=== PATIENT | male | born 1960 | race Caucasian/White ===

== ENCOUNTER → 2019-08-08 08:43 | Outpatient (BNVA) | payer MEDICARE, OTHER, SELFPAY | PROVIDERS: Family Provider Specialist; PCP Nurse Practitioner Family; Visit Provider Nurse Practitioner | DX: M54.9 Dorsalgia, unspecified (principal); F17.220 Nicotine dependence, chewing tobacco, uncomplicated; Z79.891 Long term (current) use of opiate analgesic | CPT/HCPCS: 99214 ==

== ENCOUNTER 2019-08-28 12:37 | Outpatient (CLI) | payer MEDICARE, OTHER, SELFPAY ==
--- NOTE | 2019-08-28 | XR_ITS ---
WS: [id number] RIGHT KNEE: 3 VIEW(S) TECHNIQUE: AP, oblique(s) and lateral. HISTORY: RT MEDIAL KNEE PAIN COMPARISON: None available. Status post extensive ORIF proximal tibia. No prior studies for comparison to evaluate for change. Th e hardware is intact. No lucency around the plate or screws. There are degenerative changes at the pr oximal tibiofibular joint space with osteophyte formation. Mild narrowing of the joint spaces of the knee. Concave cortical defect involving the proximal medial tibia appears well-corticated. No joint effusion. No soft tissue abnormality. XR/XR knee RT 3V* [id number] IMPRESSION: 1. No acute injury is identified radiographically. 2. Postoperative changes in the proximal tibia appear uncomplicated. No prior studies for comparison.
== END 2019-08-28 12:38 | disposition home or self-care (01) ==
LOC: RADOUTREAD 08-29 07:28
PROVIDERS: Family Provider Specialist; PCP Nurse Practitioner Family; Visit Provider Nurse Practitioner Family
DX: Z01.89 Encounter for other specified special examinations (principal)

== ENCOUNTER → 2019-09-21 10:19 | Outpatient (BNVA) | payer MEDICARE, OTHER, SELFPAY | PROVIDERS: Family Provider Specialist; PCP Nurse Practitioner Family; Referring Provider Nurse Practitioner Family; Visit Provider Orthopaedic Surgery | DX: M25.561 Pain in right knee (principal); S82.201A Unspecified fracture of shaft of right tibia, initial encounter for closed fracture; X58.XXXA Exposure to other specified factors, initial encounter | CPT/HCPCS: 73560; 73565 ==

== ENCOUNTER → 2019-12-07 08:04 | Outpatient (BNVA) | payer MEDICARE, OTHER, SELFPAY | PROVIDERS: Family Provider Specialist; PCP Nurse Practitioner Family; Visit Provider Anesthesiology | DX: M54.5 Low back pain (principal); F17.220 Nicotine dependence, chewing tobacco, uncomplicated; Z79.891 Long term (current) use of opiate analgesic | CPT/HCPCS: 99212; 99214 ==

== ENCOUNTER → 2020-01-04 08:04 | Outpatient (BNVA) | payer MEDICARE, OTHER, SELFPAY | PROVIDERS: Family Provider Specialist; PCP Nurse Practitioner Family; Visit Provider Anesthesiology | DX: G89.29 Other chronic pain (principal); M54.5 Low back pain; M17.11 Unilateral primary osteoarthritis, right knee; M25.512 Pain in left shoulder; F17.220 Nicotine dependence, chewing tobacco, uncomplicated; Z98.890 Other specified postprocedural states; Z79.891 Long term (current) use of opiate analgesic | CPT/HCPCS: 99214 ==

== ENCOUNTER 2020-03-29 09:12 | Emergency (ER) | payer MEDICARE, OTHER, SELFPAY ==
[2020-03-29 09:39] VITALS: BP 149/92; PULSE 65; RESP 18; TEMP 37.1; O2SAT 98; BMI 29.6
[2020-03-29 09:44] VITALS: BP 149/92; PULSE 63; RESP 16; O2SAT 98
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
[2020-03-29] MEDS: ketorolac 60 mg/2 mL INJ IM (09:57)
[2020-03-29] MEDS: orphenadrine 30 mg/mL Inj 2 mL 60 MG IM ×2 (09:57→09:59)
[2020-03-29] MEDS: dexamethasone 10 mg/mL INJ IM (09:57)
[2020-03-29 10:00] VITALS: BP 153/97; PULSE 83; RESP 18; O2SAT 98
[2020-03-29 10:01] VITALS: BP 153/97; PULSE 86; RESP 20; TEMP 36.6; O2SAT 98
== END 2020-03-29 10:15 | disposition home or self-care (01) ==
PROVIDERS: Emergency Provider Family Medicine; PCP Nurse Practitioner Family
DX: M54.16 Radiculopathy, lumbar region (principal); F17.220 Nicotine dependence, chewing tobacco, uncomplicated
CPT/HCPCS: 12345; 96372; 99282; 99283; J1100; J1885; J2360

== ENCOUNTER → 2020-04-24 08:25 | Outpatient (BNVA) | payer MEDICARE, OTHER, SELFPAY | PROVIDERS: Family Provider Specialist; PCP Nurse Practitioner Family; Visit Provider Anesthesiology | DX: M54.5 Low back pain (principal); F17.220 Nicotine dependence, chewing tobacco, uncomplicated; Z79.891 Long term (current) use of opiate analgesic | CPT/HCPCS: 99212; 99214 ==

== ENCOUNTER → 2020-07-16 08:13 | Outpatient (BNVA) | payer MEDICARE, OTHER, SELFPAY | PROVIDERS: Family Provider Specialist; PCP Nurse Practitioner Family; Visit Provider Anesthesiology | DX: M54.42 Lumbago with sciatica, left side (principal); F17.220 Nicotine dependence, chewing tobacco, uncomplicated; Z79.891 Long term (current) use of opiate analgesic; Z79.1 Long term (current) use of non-steroidal anti-inflammatories (NSAID) | CPT/HCPCS: 99213 ==

== ENCOUNTER → 2020-08-07 10:23 | Outpatient (BNVA) | payer MEDICARE, OTHER, SELFPAY | PROVIDERS: Family Provider Specialist; PCP Nurse Practitioner Family; Visit Provider Anesthesiology | DX: G89.29 Other chronic pain (principal); M54.5 Low back pain; M25.512 Pain in left shoulder; F17.220 Nicotine dependence, chewing tobacco, uncomplicated; Z79.891 Long term (current) use of opiate analgesic | CPT/HCPCS: 99213; 99214 ==

== ENCOUNTER → 2020-10-28 09:11 | Outpatient (BNVA) | payer MEDICARE, OTHER, SELFPAY | PROVIDERS: PCP Nurse Practitioner Family; Visit Provider Anesthesiology | DX: G89.29 Other chronic pain (principal); M54.42 Lumbago with sciatica, left side; F17.220 Nicotine dependence, chewing tobacco, uncomplicated; Z79.891 Long term (current) use of opiate analgesic | CPT/HCPCS: 99213 ==

== ENCOUNTER 2020-12-22 21:30 | Emergency (ER) | payer MEDICARE, OTHER, SELFPAY ==
[2020-12-22 21:42] VITALS: BP 147/85; PULSE 71; RESP 18; TEMP 36.9; O2SAT 97; BMI 30.4
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
[2020-12-22] MEDS: ondansetron 2 mg/ML SDV 2 mL 4 MG IVP (22:55)
[2020-12-22 23:00] VITALS: RESP 18
[2020-12-22] MEDS: morphine 4 mg/mL SDV 1 mL IVP (23:00)
[2020-12-22] MEDS: sodium chloride 0.9% 500 ML 999 ML IV (23:05)
[2020-12-22 23:10] LABS: Basophils % 0.3 %; Eosinophils % 0.2 %; Hematocrit 47.1 % (42.0-52.0); Hemoglobin 15.4 g/dL (11.7-16.6); Lymphocytes # 0.8 10^3/uL (0.8-4.8); Lymphocytes % 6.4 %; Mean Corpuscular HGB Conc 32.7 g/dL (30.0-36.0); Mean Corpuscular Hemoglobin 31.7 pg (28.0-34.0); Mean Corpuscular Volume 96.9 fL (80-94); Mean Platelet Volume 9.4 fL (7.4-10.4); Monocytes # 1.1 10^3/uL (0.2-0.9); Monocytes % 8.6 %; Neutrophils # 10.89 10^3/uL (1.8-7.7); Neutrophils % 84.1 %; Nucleated Red Blood Cells % 0 %; Platelet Count 234 10^3/cmm (130-400); Red Blood Count 4.86 10^6/uL (4.1-5.3); Red Cell Distribution Width 12.1 % (12.1-15.1); White Blood Count 12.9 10^3/uL (4.0-10.0)
[2020-12-22 23:23] LABS: Bilirubin Urine Neg (Negative); Blood Urine 3+ (Negative); Glucose Urine UA Norm (Normal); Ketones Urine Negative (Negative); Leukocyte Esterase Urine Negative (Negative); Nitrate Urine Negative (Negative); Protein Urine Neg (Negative); Specific Gravity, Urine 1.015 (1.005-1.030); Urine Appearance Clear (CLEAR); Urine Color Yellow (Yellow); Urobilinogen Urine Norm (Negative); pH Urine 5 (5-7)
[2020-12-22 23:24] LABS: Add Urine Culture? Yes; Bacteria Urine TRACE /hpf; RBC Urine 40-50 /hpf (0-2)
[2020-12-22] MEDS: tamsulosin 0.4 mg Capsule PO (23:25)
[2020-12-23 00:04] VITALS: BP 133/83; PULSE 55; RESP 18; O2SAT 98
[2020-12-23 00:14] LABS: Alanine Aminotransferase 17 U/L (0-41); Albumin Level 4.2 g/dL (3.5-5.2); Alkaline Phosphatase 80 IU/L (40-130); Anion Gap 14.6 (5-19); Aspartate Amino Transferase 14 U/L (0-40); Blood Urea Nitrogen 22 mg/dL (8-23); Calcium 9.1 mg/dL (8.5-10.5); Carbon Dioxide 23 mmol/L (22-29); Chloride 107 mmol/L (98-107); Glomerular Filtration Rate 98.3 mL/min (90-130); Glucose 106 mg/dL (65-115); Lipase 39 U/L (13-60); Osmolality Calculated 294 mOsm/kg (285-295); Potassium 4.6 mmol/L (3.5-5.1); Sodium 140 mmol/L (136-145); Total Bilirubin 0.5 mg/dL (0.15-1.2); Total Protein 6.2 g/dL (6.6-8.7)
--- NOTE | 2020-12-23 00:15 | PC.NURSE ---
report to Ena CARPENTER
[2020-12-23] MEDS: ketorolac 30 mg/mL INJ IVP (00:25)
[2020-12-23 00:31] VITALS: BP 129/87; PULSE 62; RESP 18; TEMP 36.9; O2SAT 98
--- NOTE | 2020-12-24 09:36 | DCPLANNER ---
food service manager had message to schedule a follow up appointment for patient with Dr. Yun for kidney stones. food service manager called the office of Dr. Yun, spoke with Alyse, gave clinic patients information. food service manager was told that patients information would be printed and reviewed. Clinic will call patient with appointment information.
--- NOTE | 2020-12-26 07:53 | DCPLANNER ---
Patient had a follow up appointment scheduled for 12.26.[address] Yun - patient did attend appointment.
== END 2020-12-23 00:33 | disposition home or self-care (01) ==
PROVIDERS: Emergency Provider Physician Assistant; PCP Nurse Practitioner Family
DX: N20.0 Calculus of kidney (principal); F17.220 Nicotine dependence, chewing tobacco, uncomplicated
CPT/HCPCS: 36415; 74176; 80053; 81001; 83690; 85025; 87086; 96374; 96375; 99284; J1885; J2270; J2405; J7040

== ENCOUNTER 2020-12-26 09:54 | Outpatient (CLI) | payer MEDICARE, OTHER, SELFPAY ==
--- NOTE | 2020-12-26 11:00 | XR_ITS ---
WS: [id number] KUB, AP view, 12/26/2020 Clinical Data: KIDNEY STONE Comparison: CT abdomen and pelvis, 12/22/2020. Findings: There is a calcification overlying the right kidney. A generator is overlying the inferior aspect of the right kidney obscuring detail. The kidneys are partly obscured by colon gas and fecal material bu t no calcifications are seen on the left. There is a mesenteric calcification on the right side of th e true pelvis. There is a clip in the right upper quadrant from a cholecystectomy. XR/XR KUB [id number] Impression: Right renal calculus.
== END 2020-12-26 09:55 | disposition home or self-care (01) ==
LOC: RAD 09:55
PROVIDERS: PCP Nurse Practitioner Family; Visit Provider Urology
DX: N20.0 Calculus of kidney (principal)
CPT/HCPCS: 74018; 81003; 84403; G0103

== ENCOUNTER → 2021-02-26 11:11 | Outpatient (BNVA) | payer MEDICARE, OTHER, SELFPAY | PROVIDERS: PCP Nurse Practitioner Family; Visit Provider Nurse Practitioner | DX: G89.29 Other chronic pain (principal); M54.42 Lumbago with sciatica, left side; M17.11 Unilateral primary osteoarthritis, right knee; M25.512 Pain in left shoulder; F17.220 Nicotine dependence, chewing tobacco, uncomplicated; Z98.890 Other specified postprocedural states; Z79.1 Long term (current) use of non-steroidal anti-inflammatories (NSAID); Z79.891 Long term (current) use of opiate analgesic; Z71.6 Tobacco abuse counseling | CPT/HCPCS: 99214 ==

== ENCOUNTER → 2021-05-20 08:11 | Outpatient (BNVA) | payer MEDICARE, OTHER, SELFPAY | PROVIDERS: PCP Nurse Practitioner Family; Visit Provider Anesthesiology | DX: G89.29 Other chronic pain (principal); M54.50 Low back pain, unspecified; M25.512 Pain in left shoulder; F17.200 Nicotine dependence, unspecified, uncomplicated; Z79.891 Long term (current) use of opiate analgesic; Z71.6 Tobacco abuse counseling | CPT/HCPCS: 99214 ==

== ENCOUNTER 2022-09-15 13:05 | Emergency (ER) | payer MEDICARE, OTHER, SELFPAY ==
[2022-09-15 13:07] VITALS: BP 155/75; PULSE 70; RESP 18; TEMP 36.6; O2SAT 99; BMI 28.8
--- NOTE | 2022-09-15 13:42 | XRR_ITS ---
PROCEDURE INFORMATION: Exam: XR Right Foot Exam date and time: 09/15/2022 12:46 PM Age: 61 years old Clinical indication: Pain and injury or trauma; Other: Stepped in a hole; Sprain or strain; Right; Injury details: Stepped in hole and heard a pop, old trauma to this foot also TECHNIQUE: Imaging protocol: Radiologic exam of the right foot. Views: 3 or more views. COMPARISON: CR XR knee RT 3V* [id number] 08/15/2020 12:50 PM FINDINGS: Bones/joints: Negative for acute bony abnormality. There is midfoot osteoarthritis Soft tissues: Unremarkable XR/XR foot RT min 3V* [id number] IMPRESSION: No acute bone abnormality.
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
--- NOTE | 2022-09-16 11:22 | DCPLANNER ---
Addendum entered by Kesha Ontiveros 09/22/22 14:58: Patient had a follow up appointment scheduled with podiatry - patient did attend appointment Addendum entered by Kesha Ontiveros 09/17/22 07:42: Patient has a follow up appointment scheduled for Saturday, September 17, 2022 at 11:[address] Bradley at podiatry. Original Note: grain merchandising manager had message to schedule a follow up appointment for patient with podiatry. grain merchandising manager sent patients information to the front office staff at podiatry. Patients information will be reviewed, clinic will call patient with appointment information.
== END 2022-09-15 15:18 | disposition home or self-care (01) ==
PROVIDERS: Emergency Provider Physician Assistant; PCP Nurse Practitioner Family
DX: M79.671 Pain in right foot (principal)
CPT/HCPCS: 73630; 99283; E0114

== ENCOUNTER → 2022-09-17 11:00 | Outpatient (BNVA) | payer MEDICARE, OTHER, SELFPAY | PROVIDERS: PCP Nurse Practitioner Family; Visit Provider Podiatrist Foot & Ankle Surgery | DX: M76.71 Peroneal tendinitis, right leg (principal) | CPT/HCPCS: 73630; 99203 ==

== ENCOUNTER → 2022-09-29 11:12 | Outpatient (BNVA) | payer MEDICARE, OTHER, SELFPAY | PROVIDERS: PCP Nurse Practitioner Family; Visit Provider Podiatrist Foot & Ankle Surgery | DX: M76.71 Peroneal tendinitis, right leg (principal); M19.071 Primary osteoarthritis, right ankle and foot | CPT/HCPCS: 99213 ==

== ENCOUNTER → 2023-01-05 11:24 | Outpatient (BNVA) | payer MEDICARE, OTHER, SELFPAY | PROVIDERS: PCP Nurse Practitioner Family; Visit Provider Internal Medicine Cardiovascular Disease | DX: R00.2 Palpitations (principal); Z72.0 Tobacco use; I10 Essential (primary) hypertension; M54.40 Lumbago with sciatica, unspecified side; G89.29 Other chronic pain | CPT/HCPCS: 93242; 99204 ==

== ENCOUNTER 2023-01-24 06:45 | Outpatient (CLI) | payer MEDICARE, OTHER, SELFPAY ==
--- NOTE | 2023-01-24 07:00 | USCV_ITS ---
Wade Abbott Age: 62 Gender: M : 1960 Exam Date: 01/24/2023 07:02 Ordering Phys: Meseret Hurtado MD ([email or web address]) Technologist: LORETTA Exam Location: [facility] [place] Indication: SHORTNESS OF BREATH BP: 148 / 86 HR: 56 Rhythm: Sinus Technical Quality: Adequate MEASUREMENTS (Male / Female) Normal Values 2D ECHO LVOT Diameter 2.0 cm LV Ejection Fraction MOD 2C 67.6 % LV Ejection Fraction 2C AL 68.3 % LA Diameter 3.1 cm LA Width 3.0 cm LA Height 5.1 cm RA Width 2.9 cm RA Height 5.2 cm Aorta at Sinotubular Diameter 2.9 cm IVC Diameter 1.4 cm M-MODE Aortic Annulus Diameter 2.7 cm LA Ao Ratio MM 1.1 MV E Point Septal Separation 0.4 cm DOPPLER AV Peak Velocity 135.0 cm/s LVOT Peak Velocity 130.0 cm/s AV Area Cont Eq vti 2.9 cm squared AV Area Cont Eq pk 3.0 cm squared MV Peak Velocity 88.0 cm/s MV Area PHT 4.6 cm squared Mitral E to A Ratio 1.1 MV E' Velocity 47.5 cm/s Mitral E to MV E' Ratio 7.2 Mitral E to LV E' Lateral Ratio 6.9 Mitral E to LV E' Septal Ratio 7.5 TR Peak Velocity 164.6 cm/s TR Peak Gradient 10.8 mmHg TR Mean Velocity 140.7 cm/s TR Mean Gradient 7.9 mmHg TR Velocity Time Integral 44.5 cm TV Peak E Velocity 59.0 cm/s Right Atrial Pressure 3.0 mmHg Pulmonary Artery Systolic Pressu 13.8 mmHg PV Peak Velocity 90.0 cm/s RV Acceleration Time 0.1 s RV Ejection Time 0.3 s RV AcT/ET 0.4 FINDINGS Left Ventricle Normal left ventricular size, systolic function and wall thickness, with no regional wall motion abnormalities. Left ventricular ejection fraction is estimated at 68 %. Normal diastolic function. Right Ventricle Normal right ventricular size and systolic function. RVSP could not be calculated due to incomplete tricuspid regurgitation velocity profile. Right Atrium Normal right atrial size. Left Atrium Normal left atrial size. Mitral Valve Structurally normal mitral valve. No mitral valve stenosis. Trace mitral valve regurgitation. Aortic Valve Structurally normal trileaflet aortic valve. No aortic valve stenosis. No aortic valve regurgitation. Tricuspid Valve Structurally normal tricuspid valve. No tricuspid valve stenosis. Trace to mild tricuspid valve regurgitation. Pulmonic Valve Structurally normal pulmonic valve. No pulmonary valve stenosis. No pulmonary valve regurgitation. Pericardium No pericardial effusion. Aorta Normal size aortic root and proximal ascending aorta. IVC Normal IVC dimension with >50% respiratory change of the inferior vena cava. CONCLUSIONS 1. Normal left ventricular size, systolic function and wall thickness, with no regional wall motion abnormalities. Left ventricular ejection fraction is estimated at 68 %. Normal diastolic function. 2. No prior similar studies to compare. Meseret Hurtado MD (Electronically Signed) Final Date: 28 January 2023 13:43 S
== END 2023-01-24 06:46 | disposition home or self-care (01) ==
LOC: RAD 06:48
PROVIDERS: PCP Nurse Practitioner Family; Visit Provider Internal Medicine Cardiovascular Disease
DX: R00.2 Palpitations (principal); R06.02 Shortness of breath
CPT/HCPCS: 93306; 99204

== ENCOUNTER 2023-07-20 07:43 | Outpatient (CLI) | payer MEDICARE, OTHER, SELFPAY ==
--- NOTE | 2023-07-20 07:47 | CT_ITS ---
WS: [id number] CT ABDOMEN AND PELVIS WITH AND WITHOUT CONTRAST HISTORY: HX OF KIDNEY STONES/ASYMPTOMATIC MICROSCOPIC HEMATURIA TECHNIQUE: Unenhanced 5 mm axial imaging first performed through the abdomen. Post contrast imaging t hrough the abdomen and pelvis. Oral contrast has not been provided. Sagittal and coronal reformats a re submitted. All CT scans at [facility] use at least one of these dose optimization techniqu es: automated exposure control; mA and/or kV adjustment per patient size (includes targeted exams whe re dose is matched to clinical indication); or iterative reconstruction. CONTRAST: Omnipaque 350; 95 mL IV. DLP: 1612.86 mGy.cm COMPARISON: 12/22/2020 Long-term stability lobulated 7 mm pulmonary nodule LEFT lung base. No pneumonia. Heart is normal siz e. Normal size liver. 7 mm cyst along the LEFT falciform ligament. Normal portal vein. No liver mass. Pr ior cholecystectomy. Normal postcholecystectomy bile duct. Normal pancreas. Normal spleen. RIGHT kidney: Normal size RIGHT kidney 11.3 cm in length. There are several nonobstructing calcificat ions in the central renal pelvis with the largest measuring 8 mm in the mid pelvis. 13 mm cyst in the central kidney. There are additional too small to characterize hypodensities. Within the proximal RI GHT ureter is a 5 mm ureteral calcification. No additional ureteral calcifications. This calcificatio n is not causing significant obstruction. LEFT kidney: 11.1 cm in length. No renal calcifications. Several small cysts with the largest measuri ng 1.7 cm. There are additional too small to characterize hypodensities. No ureteral obstruction or c alcification. Mild atherosclerosis aorta. No GI tract obstruction. There are a few scattered diverticula in the dis marva colon. No acute diverticulitis. No adenopathy or ascites. Urinary bladder is well distended. Prostate gland mildly heterogeneous extending into the urinary carson dder. Prostate measures 5.1 x 4.3 x 5.1 cm. Mild lumbar spondylitic change. Mild narrowing of the hip joints. No osseous destruction. Stable scle rotic focus LEFT ilium. Partial fusion of the SI joints. Dorsal column stimulator battery pack along the RIGHT back. IMPRESSION: 1. Normal size kidneys with no obstruction. 2. Nonobstructing 5 mm calcification in the proximal RIGHT ureter. 3. Additional nonobstructing calcifications in the RIGHT renal pelvis. 4. Bilateral renal cysts and additional too small to characterize hypodensities. 5. Mild enlargement of the prostate gland encroaching into the urinary bladder. 6. Long-term stability lobulated 7 mm LEFT lower lobe pulmonary nodule. 7. Prior cholecystectomy.
[2023-07-20] MEDS: iohexol 350 mg/mL 500 mL Btl (per mL) IV (08:29)
== END 2023-07-20 07:44 | disposition home or self-care (01) ==
LOC: RAD 07:45
PROVIDERS: PCP Nurse Practitioner Family; Visit Provider Urology
DX: Z87.442 Personal history of urinary calculi (principal); R31.21 Asymptomatic microscopic hematuria; N20.1 Calculus of ureter; N20.0 Calculus of kidney; N28.1 Cyst of kidney, acquired; N40.0 Benign prostatic hyperplasia without lower urinary tract symptoms
CPT/HCPCS: 74178; Q9967

== ENCOUNTER 2023-07-29 10:14 | Emergency (ER) | payer MEDICARE, OTHER, SELFPAY ==
[2023-07-29 10:42] VITALS: BP 149/89; PULSE 57; RESP 15; TEMP 36.6; O2SAT 98
--- NOTE | 2023-07-29 10:51 | USCV_ITS ---
Wade Abbott Age: 62 Gender: M : 1960 Exam Date: 07/29/2023 11:30 Ordering Phys: Nadege Arriola MD Technologist: Exam Location[place] [facility] [place] Indication: rt calf pain PROCEDURES: Venous duplex imaging was performed in only the right lower extremity. On the right side, the common femoral, superficial femoral, profunda femoral, popliteal, posterior tibial, greater saphenous veins and the peroneal trunk were identified and interrogated in the standard fashion. These veins were found to be easily compressible with spontaneous blood flow. No evidence of insufficiency or thrombus noted. FINDINGS: no dvt, probable hematoma in upper calf CONCLUSIONS No evidence of right lower extremity DVT Soft tissue edema upper calf with suspected involuting hematoma measuring 4.4 x 2.1cm Deo Rosas MD (Electronically Signed) Final Date: 29 July 2023 13:55 S
[2023-07-29 11:46] LABS: INR 1.02 (0.8-1.2); Partial Thromboplastin Time 27.4 SECONDS (23.9-36.7)
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
[2023-07-29 11:55] LABS: Alanine Aminotransferase 14 U/L (0-41); Albumin Level 4.5 g/dL (3.5-5.2); Alkaline Phosphatase 85 U/L (40-130); Anion Gap 14.9 (5-19); Aspartate Amino Transferase 13 U/L (0-40); Blood Urea Nitrogen 17 mg/dL (8-23); Calcium 9.2 mg/dL (8.5-10.5); Carbon Dioxide 27 mmol/L (22-29); Chloride 101 mmol/L (98-107); Globulin 2.9 g/dL (1.3-4.6); Glomerular Filtration Rate 113.9 mL/min (90-130); Glucose 114 mg/dL (65-115); Osmolality Calculated 288 mOsm/kg (285-295); Potassium 4.9 mmol/L (3.5-5.1); Sodium 138 mmol/L (136-145); Total Bilirubin 0.6 mg/dL (0.15-1.2); Total Protein 7.4 g/dL (6.6-8.7)
[2023-07-29 12:08] VITALS: BP 128/83; PULSE 58; RESP 16; O2SAT 96
[2023-07-29 13:00] VITALS: BP 128/83; PULSE 58; RESP 16; TEMP 36.6; O2SAT 96
== END 2023-07-29 13:02 | disposition home or self-care (01) ==
PROVIDERS: Emergency Provider Emergency Medicine; PCP Nurse Practitioner Family
DX: S86.911A Strain of unspecified muscle(s) and tendon(s) at lower leg level, right leg, initial encounter (principal); I10 Essential (primary) hypertension; F17.220 Nicotine dependence, chewing tobacco, uncomplicated; X58.XXXA Exposure to other specified factors, initial encounter; M79.604 Pain in right leg
CPT/HCPCS: 20600; 80048; 80053; 85610; 85730; 86140; 93971; 99204; 99284; J3301; J3490

== ENCOUNTER → 2023-08-23 14:36 | Outpatient (BNVA) | payer MEDICARE, OTHER, SELFPAY | PROVIDERS: PCP Nurse Practitioner Family; Visit Provider Internal Medicine | DX: R00.2 Palpitations (principal); I10 Essential (primary) hypertension; N40.1 Benign prostatic hyperplasia with lower urinary tract symptoms; N13.8 Other obstructive and reflux uropathy; M54.40 Lumbago with sciatica, unspecified side; G89.29 Other chronic pain; F17.220 Nicotine dependence, chewing tobacco, uncomplicated | CPT/HCPCS: 99214 ==

== ENCOUNTER 2024-04-27 15:00 | Outpatient (CLI) | payer MEDICARE, OTHER, SELFPAY ==
--- NOTE | 2024-04-27 15:02 | CT_ITS ---
WS: [id number] CT LUMBAR SPINE, noncontrast. HISTORY: INTERVERTEBRAL DISC DISORDER WITH RADICULOPATHY TECHNIQUE: Contiguous 2.0 mm axial imaging are performed. Sagittal and coronal reformats are submitte d and reviewed. All CT scans at [facility] use at least one of these dose optimization techni ques: automated exposure control; mA and/or kV adjustment per patient size (includes targeted exams w here dose is matched to clinical indication); or iterative reconstruction. IV contrast: None DLP: 410.76 mGy.cm COMPARISON: 07/20/2018 L4 anterolisthesis by 2 mm. No acute fractures. Disc spaces are mildly narrowed and desiccated. There is increased density in a linear manner in the lower lumbar spine beginning at the L4 level into the sacrum. This was not present on the study from 2011. Present on the examination from 2018 but partia lly obscured from the myelogram contrast. This is probably calcification along the nerve roots. L1-2: Mild annular disc bulging and osteophytic ridging. Mild foraminal stenosis. L2-3: Mild annular disc bulging encroaching upon the ventral thecal sac. Ligamentum flavum and facet arthritis. At least moderate central and bilateral subarticular recess encroachment. L3-4: Annular disc bulging and osteophytic ridging. Ligamentum flavum and facet arthritis. Moderate c entral with bilateral subarticular recess stenosis. Mild foraminal stenosis. L4-5: Diffuse annular disc bulging with a central protrusion. LEFT hemilaminectomy defect. Marked fac et disease. Moderate central with bilateral subarticular recess and foraminal stenosis. L5-S1: Diffuse annular disc bulging with osteophytic ridging. Mild central and bilateral subarticular recess and foraminal stenosis. Superior pole LEFT renal cyst. Mild atherosclerosis aorta. CT/CT lumbar spine wo con* [id number] IMPRESSION: 1. Multilevel areas of stenosis with degenerative disc disease and ligamentum flavum hypertrophy. Stenosis due to combination of disc bulging and osteophytos is and facet arthritis.. 2. Amorphous calcifications in the spinal canal in the lower lumbar and sacral region has been present since at least 2018. 3. L2-3: Moderate central with bilateral subarticular recess encroachment. 4. L3-4 and L4-5: Moderate central with bilateral subarticular recess stenosis and mild foraminal stenosis. 5. L5-S1: Mild central and bilateral subarticular recess and foraminal stenosi s.
== END 2024-04-27 15:01 | disposition home or self-care (01) ==
PROVIDERS: PCP Nurse Practitioner Family; Visit Provider Nurse Practitioner Family
DX: M51.16 Intervertebral disc disorders with radiculopathy, lumbar region (principal); M96.1 Postlaminectomy syndrome, not elsewhere classified; Z96.82 Presence of neurostimulator; M43.16 Spondylolisthesis, lumbar region; M47.896 Other spondylosis, lumbar region; M48.061 Spinal stenosis, lumbar region without neurogenic claudication; M51.360 Other intervertebral disc degeneration, lumbar region with discogenic back pain only; M25.78 Osteophyte, vertebrae; M51.370 Other intervertebral disc degeneration, lumbosacral region with discogenic back pain only
CPT/HCPCS: 72131